=== PATIENT | male | born 1935 | race Caucasian/White ===

== ENCOUNTER 2018-11-03 16:52 | Outpatient (CLI) | payer OTHER ==
[~2018-11-03 16:52] MED LIST: ALTACE10 MG; AZOR 5/20 MG TA1 TAB PO; BENICAR HCT 40-1 TAB; DICLOFENAC POTA50 MG PO; ESTAZOLAM2 MG PO; HALOPERIDOL5 MG; OMEPRAZOLE20 MG; ORPH100T PO; PEPCID40 MG PO; RESTORIL30 MG PO; RISPERDAL1 MG PO; TOPROL XL25 M1 PO; ZOFRAN4 MG PO
== END 2018-11-03 17:11 | disposition home or self-care (01) ==
LOC: EKG 16:52
DX: I10 Essential (primary) hypertension (principal)